=== PATIENT | female | born 1990 | race Caucasian/White ===

== ENCOUNTER → 2016-07-27 | Outpatient (CLI) | payer OTHER ==
[2016-07-27 13:38] LABS: Basophils % (A) 1 %; CH 32.1; CHCM 33.5; Eosinophils # (A) 0.1 k/uL (0-0.7); Eosinophils % (A) 1 %; HCT 35.9 % (34.0-46.0); HDW 2.99; HGB 11.8 gm/dL (11.4-16.0); Luc # (Auto) 0.06; Luc % (Auto) 1; Lymphocytes # (A) 1.9 k/uL (1.0-4.8); Lymphocytes % (A) 39 %; MCH 31.6 pg (25.0-35.0); MCHC 32.8 g/dL (31.0-37.0); MCV 96.3 fL (80.0-100.0); Monocytes # (A) 0.2 k/uL (0-1.0); Monocytes % (A) 5 %; Neutrophils # (A) 2.5 k/uL (1.3-7.7); Neutrophils % (A) 53 %; RBC 3.73 m/uL (3.80-5.40); RDW 13.6 % (11.5-15.5); WBC 4.8 k/uL (3.8-10.6); WBC (Perox) 4.83
== END | disposition home or self-care (01) ==
LOC: LABPAT 12:39
PROVIDERS: ATTEND Obstetrics & Gynecology
DX: Z01.812 Encounter for preprocedural laboratory examination (principal)
CPT/HCPCS: 85025

== ENCOUNTER 2016-08-04 07:50 | Day surgery (SDC) | payer OTHER ==
[2016-08-01 10:47] VITALS: BMI 20.9
[~2016-08-04 07:50] MED LIST: DEXAMETHASONE SOD PHOSPHATE 10 MG/ML 1 ML VIAL IV ONE; LACTATED RINGERS 1,000 ML IV SCH; MIDAZOLAM 2 MG/2 ML VIAL IV PRN; ONDANSETRON 4 MG/2 ML VIAL IVP ONE; Pre Op ABX Message 1 EACH MISC MISCELLANE ONE
[2016-08-04] MEDS ORDERED: LIDOCAINE 1% 20 ML VIAL (10MG/ML) FOR IV START INTRADERMA ONE (08:36)
[2016-08-04] MEDS ORDERED: GLYCOPYRROLATE 0.2 MG/ML 2 ML VIAL ONE (09:13)
[2016-08-04] MEDS ORDERED: fentaNYL (PF) 50 MCG/ML 2 ML AMP ONE (09:13)
[2016-08-04] MEDS ORDERED: ROCURONIUM BROMIDE 10 MG/ML 10 ML VIAL IV ONE (09:13)
[2016-08-04] MEDS ORDERED: LIDOCAINE 1% INJ 10MG/ML (20 ML MDV) ONE (09:13)
[2016-08-04] MEDS ORDERED: NEOSTIGMINE 1 MG/ML 10 ML VIAL ONE (09:13)
[2016-08-04] MEDS ORDERED: PROPOFOL 10 MG/ML 20 ML VIAL IV ONE (09:13)
[2016-08-04] MEDS ORDERED: KETOROLAC 30 MG/ML 1 ML VIAL ONE (09:13)
[2016-08-04] MEDS ORDERED: SUCCINYLCHOLINE CHLORIDE 100 MG/5 ML SYR IV ONE (09:13)
--- NOTE | 2016-08-04 09:13 | P.HPOB ---
History of Present Illness H&P Date: 08/04/16 Chief Complaint: Family planning Patient is a 26-year-old female 2 para 2 who is completed her family planning and desires permanent sterilization. Risks/benefits/alternatives to laps scopic tubal occlusion with surgical clips was discussed with patient in detail and all questions have been answered for her prior to proceeding to the operating room. On physical exam vital signs are stable and afebrile. Heart regular, lungs clear, extremities are without pain. Pelvic exam generally unremarkable. Abdomen is soft positive bowel sounds are noted and no masses are noted. Assessment family planning. Land lap scopic tubal occlusion with Filshie clips Past Medical History Past Medical History: No Reported History History of Any Multi-Drug Resistant Organisms: None Reported Past Surgical History: No Surgical Hx Reported Additional Past Surgical History / Comment(s): D&C FOR RETAINED PLACENTA/ HEMATOMA Past Anesthesia/Blood Transfusion Reactions: No Reported Reaction Past Psychological History: Anxiety, Depression Additional Psychological History / Comment(s): Depression- not medicated Smoking Status: Never smoker Past Alcohol Use History: None Reported Past Drug Use History: None Reported - Past Family History Mother Family Medical History: No Reported History Medications and Allergies Home Medications Medication Instructions Recorded Confirmed Type Cetirizine HCl [Zyrtec] 10 mg PO DAILY 08/01/16 08/04/16 History Allergies Allergy/AdvReac Type Severity Reaction Status Date / Time No Known Allergies Allergy Verified 08/04/16 08:39 Exam Osteopathic Statement: *. No significant issues noted on an osteopathic structural exam other than those noted in the History and Physical/Consult. - Vital Signs Vital signs: Vital Signs Temp Pulse Resp BP Pulse Ox 08/04/16 08:35 98.4 F 100 16 115/68 100
[2016-08-04] MEDS ORDERED: BUPIVACAINE (PF) 0.25% 30 ML VIAL SQ ONE (09:36)
--- NOTE | 2016-08-04 09:47 | P.OP ---
Date of Procedure: 08/04/16 Preoperative Diagnosis: Family planning Postoperative Diagnosis: Same Procedure(s) Performed: Laparoscopic tubal occlusion with Filshie clips Implants: Anesthesia: GINA Surgeon: Jake Sandoval Estimated Blood Loss (ml): 5 Urine output (ml): 100 Pathology: none sent Condition: stable Disposition: same day Indications for Procedure: Operative Findings: Note of small amount of blood in her pelvis likely from a ruptured cyst that was seen on the left ovary. However it was not bleeding so was left alone Description of Procedure: Patient was taken to the operating suite where a general anesthetic was found be adequate. She was prepped and draped in the normal sterile fashion and placed in the dorsal lithotomy position. Initially a speculum was inserted into the vagina and the anterior lip of the cervix was grasped with a single- toothed tenaculum and a kroner manipulator was inserted without difficulty following sounding to 7.5 cm. Red rubber catheter was then placed to drain the bladder.. Other instruments removed from the vagina gloves were changed and attention was turned to abdominal portion procedure. 2 mL of quarter percent Marcaine were then injected periumbilically and through this injected anesthetic a 5 mm skin incision was made. Through this incision under direct visualization with an optical trocar and sleeve the camera was inserted. Once peritoneal placement was assured gas was allowed to fully insufflate the abdomen and plate patient was placed in steep Trendelenburg position. A second 8 mm skin incision was then made 3 cm above the pubic symphysis in the midline. Another port and sleeve were inserted through this again under direct visualization. Observations pelvis were noted as above. First the right fallopian tube than the left fallopian tube had a Filshie clip applied 2-3 cm from uterine cornu. C no bleeding from the mesosalpinx instruments were removed and gas was allowed to expel from the abdomen. 5 deep breaths were provided during this process. 4-0 Vicryl was then used to reapproximate the skin the remaining 8 mL of quarter percent Marcaine was then injected around the incisions. Red rubber catheter and manipulator were removed at this time sponge, lap, needle counts were correct 2. Patient was taken to the recovery room in stable and satisfactory condition. Plan - Discharge Summary New Discharge Prescriptions: New Acetaminophen-Codeine 300-30mg [Tylenol #3] 1 tab PO Q4H PRN #30 tablet PRN Reason: Pain Ibuprofen [Motrin] 600 mg PO Q6HR PRN #30 tab PRN Reason: Pain No Action Cetirizine HCl [Zyrtec] 10 mg PO DAILY Discharge Medication List Cetirizine HCl [Zyrtec] 10 mg PO DAILY 08/01/16 [History] Acetaminophen-Codeine 300-30mg [Tylenol #3] 1 tab PO Q4H PRN #30 tablet [Rx] Ibuprofen [Motrin] 600 mg PO Q6HR PRN #30 tab 08/04/16 [Rx] Follow up Appointment(s)/Referral(s): Jake Sandoval DO [Doctor of Osteopathic Medicine] - 2 Weeks Activity/Diet/Wound Care/Special Instructions: No heavy lifting, limit stairs and driving and pelvic rest for the next few days. If any high temperatures, heavy bleeding, or severe pain call my office
[2016-08-04] MEDS: HYDROmorphone 1 MG/ML 1 ML SYRINGE IVP PRN ×4 (09:57→10:27)
[2016-08-04 10:07] VITALS: TEMP 97.6
[2016-08-04] MEDS ORDERED: MEPERIDINE 50 MG/ML SYRINGE IVP ONE (10:37)
[2016-08-04] MEDS ORDERED: ONDANSETRON 4 MG/2 ML VIAL IVP ONE (14:09)
[2016-08-04 15:06] VITALS: BP 102/63; PULSE 83; RESP 18
== END 2016-08-04 16:09 | disposition home or self-care (01) ==
LOC: OR 07:50
PROVIDERS: ATTEND Obstetrics & Gynecology
DX: Z30.2 Encounter for sterilization (principal); Z79.899 Other long term (current) drug therapy
CPT/HCPCS: 58671; 81025; J2250; J1100; J2710; J2175; J2405; J2001; J3010; J1885; J1170; J0330; J2704

== ENCOUNTER 2018-08-28 12:49 | Emergency (ER) | payer OTHER ==
[2018-08-28 13:05] VITALS: BP 118/75; PULSE 74; RESP 18; TEMP 98.7
[2018-08-28 14:02] LABS: Amphetamine Screen,Urine Not Detected (NotDetected); Barbiturate Screen,Urine Not Detected (NotDetected); Benzodiazepines Screen,Urine Not Detected (NotDetected); Cocaine Screen,Urine Not Detected (NotDetected); Methadone Screen, Urine Not Detected (NotDetected); Opiate Screen,Urine Not Detected (NotDetected); Oxycodone Screen, Urine Not Detected (NotDetected); Phencyclidine Screen,Urine Not Detected (NotDetected); Tricyclic Antidepressant,Urine Not Detected (NotDetected); Urn Cannabinoid Scrn Not Detected (NotDetected)
--- NOTE | 2018-08-28 17:07 | ED ---
General Adult HPI - General Chief complaint: Psychiatric Symptoms Stated complaint: mental health Time Seen by Provider: 08/28/18 13:23 Source: patient, RN notes reviewed Mode of arrival: ambulatory Limitations: no limitations - History of Present Illness Initial comments: Anamika is a 28-year-old female with a past history of depression and anxiety. Patient presents for worsening symptoms. Patient states that she has been anxious is seeking her buspirone for this and it does not seem to be helping. States that over the weekend she was feeling like her kids would be better without her she cannot care for them. When prompted patient states she is not really thinking about suicide when she says this just thinks it would be better off without her. Patient does not have any plan for suicide. No plan for harming anyone else. States that she followed up with her therapist who thought she should be seen because she is having these bad thoughts. She states she is taking her medications appropriately.Patient has no other complaints at this time including shortness of breath, chest pain, abdominal pain, nausea or vomiting, headache, or visual changes. - Related Data Home Medications Medication Instructions Recorded Confirmed Cetirizine HCl [Zyrtec] 10 mg PO HS 08/01/16 08/28/18 Citalopram Hydrobromide [CeleXA] 40 mg PO DAILY 08/28/18 08/28/18 Nitrofurantoin Monohyd/M-Cryst 100 mg PO Q12HR 08/28/18 08/28/18 [Macrobid] busPIRone HCl [Buspar] 10 mg PO BID 08/28/18 08/28/18 Allergies Allergy/AdvReac Type Severity Reaction Status Date / Time No Known Allergies Allergy Verified 08/28/18 14:13 Review of Systems ROS Statement: Those systems with pertinent positive or pertinent negative responses have been documented in the HPI. ROS Other: All systems not noted in ROS Statement are negative. Past Medical History Past Medical History: No Reported History History of Any Multi-Drug Resistant Organisms: None Reported Past Surgical History: No Surgical Hx Reported Past Anesthesia/Blood Transfusion Reactions: No Reported Reaction Past Psychological History: Depression Smoking Status: Never smoker Past Alcohol Use History: None Reported Past Drug Use History: None Reported - Past Family History Mother Family Medical History: No Reported History General Exam Limitations: no limitations General appearance: alert, in no apparent distress Head exam: Present: atraumatic, normocephalic, normal inspection Eye exam: Present: normal appearance, PERRL, EOMI. Absent: scleral icterus, conjunctival injection, periorbital swelling ENT exam: Present: normal exam, mucous membranes moist Neck exam: Present: normal inspection, full ROM. Absent: tenderness, meningismus, lymphadenopathy Respiratory exam: Present: normal lung sounds bilaterally. Absent: respiratory distress, wheezes, rales, rhonchi, stridor Cardiovascular Exam: Present: regular rate, normal rhythm, normal heart sounds. Absent: systolic murmur, diastolic murmur, rubs, gallop, clicks Neurological exam: Present: alert, oriented X3, CN II-XII intact Psychiatric exam: Present: normal affect, normal mood Course Vital Signs 08/28/18 13:01 Temperature 98.7 F Pulse Rate 74 Respiratory 18 Rate Blood Pressure 118/75 O2 Sat by Pulse 100 Oximetry Medical Decision Making - Medical Decision Making Anamika is a 28-year-old pleasant female presenting for depression. Patient states she has been taking her medications appropriately but is having "bad thoughts. Thinking her kids would be better off without her. Denies any suicidal thoughts or thoughts of harming herself. Denies any plan for suicide. Patient states her doctor wanted her to come in for further evaluation. Patient was evaluated by mobile crisis unit. At this time recommending discharg e. Recommending partial treatment patient was given referrals. Patient is agreeable to this. Patient will be discharged home. On reevaluation patient is still well-appearing, comfortable with this plan. - Lab Data Lab Results 08/28/18 Range/Units 13:30 Urine Opiates Screen Not Detected (NotDetected) Ur Oxycodone Screen Not Detected (NotDetected) Urine Methadone Screen Not Detected (NotDetected) Ur Propoxyphene Screen Not Detected (NotDetected) Ur Barbiturates Screen Not Detected (NotDetected) U Tricyclic Antidepress Not Detected (NotDetected) Ur Phencyclidine Scrn Not Detected (NotDetected) Ur Amphetamines Screen Not Detected (NotDetected) U Methamphetamines Scrn Not Detected (NotDetected) U Benzodiazepines Scrn Not Detected (NotDetected) Urine Cocaine Screen Not Detected (NotDetected) U Marijuana (THC) Screen Not Detected (NotDetected) Disposition Clinical Impression: Depression Disposition: HOME SELF-CARE Condition: Good Instructions (If sedation given, give patient instructions): Depression (ED) Additional Instructions: Please follow up with primary care in 1-2 days. Please return here to the emergency department if you have any worsening symptoms. Is patient prescribed a controlled substance at d/c from ED?: No Referrals: Zoya Hercules MD [Primary Care Provider] - 1-2 days Time of Disposition: 17:07
== END 2018-08-28 17:45 | disposition home or self-care (01) ==
LOC: EC 12:49
DX: F32.9 Major depressive disorder, single episode, unspecified (principal); F41.9 Anxiety disorder, unspecified; Z79.899 Other long term (current) drug therapy
CPT/HCPCS: 80306; 82075; 99284

== ENCOUNTER → 2021-08-16 | Outpatient (CLI) | payer OTHER ==
[2021-08-16 18:56] LABS: HCT 34.8 % (37.2-46.3); HGB 10.3 g/dL (12.0-15.0); MCH 24.9 pg (27.0-32.0); MCHC 29.6 g/dL (32.0-37.0); MCV 84.1 fL (80.0-97.0); Mean Platelet Volume 10.5 fL (9.5-12.2); NRBC Per 100 WBC 0 /100 WBCS (0.0-0.0); Platelet Count 263 X 10*3/uL (140-440); RBC 4.14 X 10*6/uL (4.10-5.20); RDW 25.7 % (11.5-14.5); WBC 4.68 X 10*3/uL (4.50-10.00)
[2021-08-16 20:41] LABS: Basophils # (A) 0.02 X 10*3/uL (0.00-0.10); Basophils % (A) 0.4 %; Eosinophils # (A) 0.02 X 10*3/uL (0.04-0.35); Eosinophils % (A) 0.4 %; Immature Grans, Automated 0.2 %; Lymphocytes # (A) 1.43 X 10*3/uL (0.90-5.00); Lymphocytes % (A) 30.6 %; Monocytes # (A) 0.33 X 10*3/uL (0.20-1.00); Monocytes % (A) 7.1 %; Neutrophils # (A) 2.87 X 10*3/uL (1.80-7.70); Neutrophils % (A) 61.3 %
[2021-08-16 20:42] LABS: Anisocytosis (M) 2+
== END | disposition home or self-care (01) ==
LOC: LABWHC1 13:13
PROVIDERS: ATTEND Internal Medicine Gastroenterology
DX: K52.9 Noninfective gastroenteritis and colitis, unspecified (principal)
CPT/HCPCS: 36415; 83516; 85025

== ENCOUNTER → 2021-08-17 | Outpatient (CLI) | payer OTHER ==
[2021-08-18 02:16] LABS: Gliadin AB IgA, Deaminated NEGATIVE (NEGATIVE); Gliadin AB IgA, Unit 0.4 U/mL; Gliadin AB IgG, Deaminated NEGATIVE (NEGATIVE); Gliadin AB IgG, Unit <0.4 U/mL
== END | disposition home or self-care (01) ==
LOC: LABWHC1 16:18
PROVIDERS: ATTEND Internal Medicine Gastroenterology
DX: K52.9 Noninfective gastroenteritis and colitis, unspecified (principal)
CPT/HCPCS: 36415; 83516